=== PATIENT | male | born 1955 | race Caucasian/White ===

== ENCOUNTER → 2023-11-08 | Outpatient (CLI) | payer MEDICARE ==
[2023-11-08 14:53] VITALS: BP 160/83; PULSE 75; RESP 16; TEMP 97.7; BMI 34.0
--- NOTE | 2023-11-08 16:59 | P.BASOAP ---
Subjective Progress Note Date: 11/08/23 Principal diagnosis: Dysphagia 68-year-old male known to our service. Patient underwent previous laparoscopic banding. Weight before Lap-Band was 309. His lowest weight was 220 and today it is 251. Patient says he had his band loosened a few years ago in [place] and says he had an upper GI showing the band was tight at the time. No further follow-up after that. Recently has had increasing dysphagia and nausea. Doing better with intermittent fasting as far as weight loss goes. Occasional episodes of vomiting. Objective - Vital Signs Vital signs: Vital Signs Temp 97.7 F 11/08/23 14:45 Pulse 75 11/08/23 14:45 Resp 16 11/08/23 14:45 BP 160/83 11/08/23 14:45 Pulse Ox FiO2 Intake & Output 11/07/23 11/08/23 11/08/23 18:59 06:59 18:59 Weight 113.852 kg - Exam Abdomen: Soft, nontender, nondistended Assessment/Plan (1) Dysphagia Narrative/Plan: 68-year-old male with history of Lap-Band and dysphagia at this time. Options reviewed. Will empty the band at this time. Patient will consider EGD. Patient also is interested in Lap-Band removal. This is reasonable if patient has no significant weight gain after emptying band today. The patient's lap band port was palpated. The site was aseptically prepped. The Gallardo needle was advanced into the port. A total of 2.5 ml of fluid was evacuated. Band is now empty. Pressure was held and a sterile dressing was applied. Plan: Date: 11/08/23 Initial Weight: 140.16 kg Initial BMI: 41.9 Current Weight: 113.852 kg Current BMI: 34.0 Type of Surgery: Adjustable Gastric Banding Total Volume in Band: 0 Previous Volume: Volume Removed: 2.5 Volume Added: Band Size:
== END ==
LOC: BARWHC3 14:28
PROVIDERS: ATTEND Surgery
DX: R13.10 Dysphagia, unspecified (principal); R11.10 Vomiting, unspecified; Z46.51 Encounter for fitting and adjustment of gastric lap band; Z98.84 Bariatric surgery status
CPT/HCPCS: 99202